=== PATIENT | male | born 1995 | race Asian ===

== ENCOUNTER 2024-08-24 01:23 | Emergency (ER) | payer SELFPAY ==
[~2024-08-24] VITALS: Ht 172.7 cm; Wt 78.0 kg
[2024-08-24 01:32] VITALS: O2SAT 100
[2024-08-24] MEDS: SODIUM CHLORIDE 0.9% 500 ML IV ONE (02:05)
[2024-08-24 02:12] LABS: MEAN CORPUSCULAR HEMOGLOBIN 38.5 pg (28.0-32.0); MEAN CORPUSCULAR HGB CONC 28.1 g/dL (31.0-37.0); MEAN CORPUSCULAR VOLUME 136.8 fL (80.0-94.0); MEAN PLATELET VOLUME 7.2 fl (7.4-10.4); PLATELET 121 x1000/uL (130-400); RED BLOOD CELL COUNT 0.91 mill/uL (4.7-6.1); RED CELL DISTRIBUTION WIDTH 22.8 % (11.6-14.6); WHITE BLOOD COUNT 11.5 x1000/uL (4.5-11.0)
[2024-08-24 02:24] LABS: CHLORIDE 112 mEq/L (98-107); HEMATOCRIT. 12.4 % (42.0-52.0); HEMOGLOBIN. 3.5 g/dL (14.0-18.0); POTASSIUM 3.9 mEq/L (3.5-5.1); SODIUM 142 mEq/L (136-145)
[2024-08-24 02:25] LABS: DIFFERENTIAL COMMENT 1
[2024-08-24 02:29] LABS: CREATININE 1.2 mg/dL (0.6-1.3); GLUCOSE 185 mg/dL (70-105)
[2024-08-24 02:30] LABS: TROPONIN I HIGH SENSITIVITY 5 ng/L (3.0-53); UREA NITROGEN BLOOD 5 mg/dL (9-23)
[2024-08-24 02:32] LABS: PHOSPHORUS 5.7 mg/dL (2.5-4.9)
[2024-08-24 02:34] LABS: CARBON DIOXIDE < 10 mEq/L (21-32)
[2024-08-24 02:35] LABS: AMMONIA 196 uMol/L (<32)
[2024-08-24 02:38] LABS: INR 2.2; PROTHROMBIN TIME 21.9 sec (9.6-11.0)
[2024-08-24 02:39] LABS: ETHANOL BLOOD 329 mg/dL (<10)
[2024-08-24 02:52] LABS: PARTIAL THROMBOPLASTIN TIME 81.1 sec (23.4-31.0)
[2024-08-24] MEDS: LACTULOSE 20G/30ML UDC PO ONE (03:03)
[2024-08-24] MEDS: FOLIC ACID 1 MG, THIAMINE HCL 100 MG, MVI, ADULT NO.1 10 ML in DEXTROSE 5% WATER 1,000 ML IV ONE (03:04)
[2024-08-24 03:38] VITALS: PULSE 85; RESP 18; O2SAT 100
[2024-08-24 03:41] LABS: LACTIC ACID 12.6 mmol/L (0.4-2.0)
[2024-08-24] MEDS ORDERED: SODIUM BICARBONATE 100 MEQ in DEXTROSE 5% WATER 900 ML IV SCH (03:45)
[2024-08-24] MEDS ORDERED: MORPHINE SULFATE 2 MG/ML INJ (NOT FOR IM USE) IV PRN (04:00)
[2024-08-24] MEDS ORDERED: MAGNESIUM/ALUMINUM HYDROXIDE/SIMETHICONE 30ML UDC PO PRN (04:00)
[2024-08-24] MEDS ORDERED: DOCUSATE SODIUM 100MG CAPSULE PO PRN (04:00)
[2024-08-24] MEDS ORDERED: GUAIFENESIN 200MG/10ML SUGAR FREE UDC PO PRN (04:00)
[2024-08-24] MEDS ORDERED: MAGNESIUM 2 G PREMIX 50 ML IV NR (04:00)
[2024-08-24] MEDS ORDERED: CLONIDINE 0.1MG TABLET PO PRN (04:00)
[2024-08-24] MEDS: NOREPINEPHRINE 8MG/250ML PMX 250 ML IV PRN (04:00)
[2024-08-24] MEDS ORDERED: VASOPRESSIN 20 UNIT in SODIUM CHLORIDE 0.9% 99 ML IV PRN ×2 (04:00→05:45)
[2024-08-24] MEDS ORDERED: PROPOFOL 10MG/ML 100ML 100 ML IV PRN (04:00)
[2024-08-24] MEDS ORDERED: ONDANSETRON HCL 4MG/2ML INJ IV PRN ×2 (04:00→05:15)
[2024-08-24] MEDS ORDERED: NA PHOS,M-B/NA PHOS,DI-BA ENEMA 118ML PR PRN (04:00)
[2024-08-24] MEDS ORDERED: IPRATROPIUM/ALBUTEROL 0.5-3(2.5)MG/3ML NEB HHN PRN (04:00)
[2024-08-24 04:08] VITALS: TEMP 31.1
[2024-08-24] MEDS: SUCCINYLCHOLINE CHLORIDE 200MG/10ML IV ONE (04:33)
[2024-08-24] MEDS: ETOMIDATE 2MG/ML 10ML VIAL IV ONE (04:33)
[2024-08-24] MEDS: PANTOPRAZOLE SODIUM 40 MG/VIAL IV NR (04:41)
[2024-08-24] MEDS: TRANEXAMIC ACID 1,000MG/10ML IV NR (04:42)
[2024-08-24] MEDS: SODIUM BICARBONATE 8.4% 50MEQ/50ML SYR IV ONE (04:45)
[2024-08-24] MEDS ORDERED: PANTOPRAZOLE 80 MG in SODIUM CHLORIDE 0.9% 100 ML IV SCH ×2 (05:00→12:00)
[2024-08-24 05:08] VITALS: BP 49/16; PULSE 87; RESP 14; O2SAT 100
[2024-08-24] MEDS: VASOPRESSIN 20 UNIT in SODIUM CHLORIDE 0.9% 99 ML IV PRN (05:08)
[2024-08-24] MEDS ORDERED: NOREPINEPHRINE 32 MG in DEXT 5% WATER 218 ML IV PRN (05:15)
[2024-08-24] MEDS ORDERED: SODIUM CHLORIDE 0.9% 1,000 ML IV SCH (05:15)
[2024-08-24] MEDS ORDERED: PHENYLEPHRINE 100 MG in DEXT 5% WATER 240 ML IV PRN ×2 (05:15→05:30)
[2024-08-24] MEDS ORDERED: NOREPINEPHRINE 8 MG in DEXT 5% WATER 242 ML IV PRN (05:15)
[2024-08-24] MEDS ORDERED: DIPHENHYDRAMINE 50MG/ML VIAL IV PRN (05:15)
[2024-08-24] MEDS ORDERED: MVI, ADULT NO.1 10 ML, FOLIC ACID 1 MG, THIAMINE HCL 100 MG in SODIUM CHLORIDE 0.9% 1,0... IV SCH (05:15)
[2024-08-24] MEDS ORDERED: ACETAMINOPHEN 325MG TABLET PO PRN (05:15)
[2024-08-24 05:17] LABS: ALBUMIN 1.2 g/dL (3.2-4.8)
[2024-08-24 05:24] LABS: MEAN CORPUSCULAR HEMOGLOBIN 32.9 pg (28.0-32.0); MEAN CORPUSCULAR HGB CONC 28.7 g/dL (31.0-37.0); MEAN CORPUSCULAR VOLUME 114.7 fL (80.0-94.0); PLATELET 64 x1000/uL (130-400); RED BLOOD CELL COUNT 1.17 mill/uL (4.7-6.1); RED CELL DISTRIBUTION WIDTH 21.7 % (11.6-14.6); WHITE BLOOD COUNT 15.9 x1000/uL (4.5-11.0)
[2024-08-24] MEDS ORDERED: OCTREOTIDE ACETATE 100 MCG/ML VIAL IV NR (05:30)
[2024-08-24] MEDS ORDERED: DEXT 5%/0.45% NACL 1000ML 1,000 ML IV SCH (05:30)
[2024-08-24] MEDS: PHENYLEPHRINE 100 MG in DEXT 5% WATER 240 ML IV PRN (05:33)
[2024-08-24 05:38] LABS: TROPONIN I HIGH SENSITIVITY 9 ng/L (3.0-53)
[2024-08-24] MEDS ORDERED: CALCIUM GLUCONATE 1GM PREMIX 50 ML IV NR (05:45)
[2024-08-24] MEDS ORDERED: DOPAMINE 800MG PREMIX (DOUBLE) 250 ML IV PRN ×2 (05:45→06:00)
[2024-08-24] MEDS ORDERED: EPINEPHRINE 10 MG in SODIUM CHLORIDE 0.9% 240 ML IV PRN ×2 (05:45→06:00)
[2024-08-24 05:47] LABS: BG CARBOXYHEMOGLOBIN 0.3 % (0.5-1.5); BG DEOXYHEMOGLOBIN 80.7 % (0.0-5.0); BG FRACTION INSPIRED OXYGEN 100; BG METHEMOGLOBIN 4.6 % (0.5-1.5); BG OXYGEN SATURATION 15.1 % (94.0-98.0); BG OXYHEMOGLOBIN 14.4 % (94.0-98.0); BG PH < 6.686 (7.350-7.450); BG PO2 < 30.3 mmHg (83.0-108.0); BG SAMPLE SITE CPB CIRCUIT; BG TOTAL HEMOGLOBIN 4.8 g/dL (13.5-17.5); BG VENT MODE VENT - AC
[2024-08-24 05:52] LABS: BASOPHILS % 0.3 % (0.0-2.0); LYMPHOCYTES % 8.8 % (20.0-50.0); MEAN CORPUSCULAR HEMOGLOBIN 33.3 pg (28.0-32.0); MEAN CORPUSCULAR VOLUME 115.1 fL (80.0-94.0); MEAN PLATELET VOLUME 7.4 fl (7.4-10.4); MONOCYTES % 9.3 % (2.0-8.0); NEUTROPHILS % 81.6 % (40.0-76.0); PLATELET 63 x1000/uL (130-400); RED BLOOD CELL COUNT 1.15 mill/uL (4.7-6.1); RED CELL DISTRIBUTION WIDTH 21.6 % (11.6-14.6); WHITE BLOOD COUNT 15.8 x1000/uL (4.5-11.0)
[2024-08-24] MEDS ORDERED: OCTREOTIDE 1,000 MCG in SODIUM CHLORIDE 0.9% 98 ML IV SCH (06:00)
[2024-08-24] MEDS ORDERED: CEFTRIAXONE 1GM/50ML 50 ML IV SCH (06:00)
[2024-08-24 07:28] LABS: HEMATOCRIT 13.5 % (42.0-52.0); HEMOGLOBIN 3.9 g/dL (14.0-18.0)
[2024-08-24 07:29] LABS: DIFFERENTIAL COMMENT 1; HEMATOCRIT. 13.2 % (42.0-52.0); HEMOGLOBIN. 3.8 g/dL (14.0-18.0)
[2024-08-24 07:34] LABS: AMMONIA 448 uMol/L (<32)
[2024-08-24] MEDS ORDERED: ETOMIDATE 2MG/ML 10ML VIAL IV ONE (08:04)
[2024-08-24 08:14] LABS: INR 3.5; PROTHROMBIN TIME 33.5 sec (9.6-11.0)
[2024-08-24] MEDS ORDERED: AZITHROMYCIN 500 MG in DEXT 5% WATER 250 ML IV SCH (09:00)
[2024-08-24 10:16] LABS: ANISOCYTOSIS 3+; PLATELET ESTIMATE SLIGHTLY DECREASED
[2024-08-24 10:17] LABS: HYPOCHROMASIA 1+
[2024-08-24 12:53] LABS: CHLORIDE 109 mEq/L (98-107); POTASSIUM 5.2 mEq/L (3.5-5.1); SODIUM 139 mEq/L (136-145)
[2024-08-24 12:59] LABS: CREATININE 1.5 mg/dL (0.6-1.3); GLUCOSE 299 mg/dL (70-105); UREA NITROGEN BLOOD 6 mg/dL (9-23)
[2024-08-24 13:01] LABS: CREATINE KINASE 98 IU/L (46-171)
[2024-08-24 13:08] LABS: CALCIUM 5.9 mg/dL (8.7-10.4)
[2024-08-24 13:09] LABS: CARBON DIOXIDE < 10 mEq/L (21-32)
[2024-08-25] MEDS ORDERED: FOLIC ACID 1 MG, THIAMINE HCL 100 MG, MVI, ADULT NO.1 10 ML in DEXTROSE 5% WATER 1,000 ML IV ONE (04:00)
== END 2024-08-24 08:03 ==
LOC: ER 01:23 → CANBEDREQ 07:39 → ER 08:03
DX: J96.01 Acute respiratory failure with hypoxia (principal); K70.31 Alcoholic cirrhosis of liver with ascites; F10.129 Alcohol abuse with intoxication, unspecified; K76.82 Hepatic encephalopathy; E83.42 Hypomagnesemia; R57.8 Other shock; Y90.8 Blood alcohol level of 240 mg/100 ml or more
CPT/HCPCS: 80048; 82040; 80320; 82140; 82550; 82962; 83880; 83605; 83615; 83690; 83735; 84100; 85027; 85025; 85044; 85384; 85610; 85730; 86850; 86900; 86901; 86920; 87040; 87076; 84484; 36415; 71045; 93970; 82375; 93005; 31500; 36556; 96361; 96374; 96375; 99291; 36600; J0461; J3490 ×9; J2354; J2470; J0330; J3411; J7070; J7050; Z7610 ×8; 36430; 94002; J0456; J2704; J7060; P9016; G0480